=== PATIENT | female | born 1995 | race Caucasian/White ===

== ENCOUNTER 2019-10-25 18:25 | Emergency (ER) | payer OTHER, SELFPAY ==
[2019-10-25 18:30] VITALS: BP 145/100; PULSE 115; RESP 17; TEMP 36.7; O2SAT 98; BMI 40.3
--- NOTE | 2019-10-25 18:33 | XR_ITS ---
PROCEDURE: XR CHEST 2V CLINICAL HISTORY: chest pain Nonsmoker COMPARISON: No exams were available for comparison FINDINGS: The cardiomediastinal silhouette and pulmonary vascularity are within normal limits. The lungs are clear without infiltrates, suspicious nodules, or pleural effusions. No acute bony abnormalities. IMPRESSION: No acute findings. Dictated by: Dr. Blair Duran MD 10/25/2019 20:[address] Blair Duran MD in [place] 10/25/2019 20:44
--- NOTE | 2019-10-25 18:33 | ECG_ITS ---
APPROVED REPORT Exam: Resting ECG HR:111 bpm ECG Measurements Heart Rate 111 AXES [place] 168 P 39 QRSd 84 QRS 44 QT 342 T 31 QTc 465 <Conclusion> Sinus tachycardia Otherwise normal ECG Electronically signed by : Anderson Mojica, 10/26/2019 13:57:47
[2019-10-25 18:47] LABS: Microscopic, Urine URINE MICROSCOPIC (MICROSCOPIC)
[2019-10-25 18:49] LABS: Basophils % 0.4 % (0.1-2.0); Eosinophils # 0.2 K/mm3 (0.0-0.4); Eosinophils % 1.8 % (0.1-12.0); Hematocrit 42.5 % (37.0-47.0); Hemoglobin 13.8 g/dL (12.2-16.2); Lymphocytes # 3.3 K/mm3 (0.7-4.5); Lymphocytes % 36.5 % (10-50); Mean Corpuscular HGB Conc 32.6 g/dL (31.8-35.4); Mean Corpuscular Hemoglobin 30.3 pg (27.0-31.2); Mean Corpuscular Volume 92.8 fl (81-99); Mean Platelet Volume 7.8 fl (7.4-10.4); Monocytes # 0.4 K/mm3 (0.1-1.0); Monocytes % 3.9 % (1.7-9.3); Neutrophils # 5.2 K/mm3 (1.8-7.8); Neutrophils % 57.3 % (37.0-80.0); Platelet Count 332 K/mm3 (142-424); Red Blood Count 4.57 M/mm3 (4.20-5.40); Red Cell Distribution Width 13.3 % (11.5-17.5)
[2019-10-25 18:51] LABS: Appearance,Urine SL CLOUDY (Clear); Bilirubin,Urine Negative (Negative); Blood, Urine Negative (Negative); Color,Urine YELLOW (Yellow); Glucose,Urine (UA) Negative (Negative); Ketones,Urine Negative (Negative); Leukocyte Esterase,Urine 1+ (Negative); Nitrate,Urine Negative (Negative); PH,Urine 6.5 (5.0-8.5); Protein,Urine Negative (Negative); Specific Gravity, Urine 1.025 (1.005-1.030); Urobilinogen,Urine 0.2 EU/dl (0.2)
[2019-10-25 18:58] LABS: Amorphous Sediment,Urine 1+ /lpf; Bacteria,Urine 1+ /lpf; Squamous Epithelial Cell,Urine 20-50 #/hpf (0-5); Urine Pregnancy, HCG Qual. Negative (Negative)
[2019-10-25 18:59] LABS: Alanine Aminotransferase 16 U/L (12-78); Albumin Level 4.6 g/dl (3.5-5.0); Alkaline Phosphatase 85 U/L (38-126); Anion Gap 12.7 mEq/L (5-15); Aspartate Amino Transferase 23 U/L (14-36); Bilirubin,Unconjugated 0.2 mg/dL (0.0-1.1); Blood Urea Nitrogen 14 mg/dl (7-17); Calcium 9.9 mg/dl (8.4-10.2); Carbon Dioxide 25 mmol/L (22.0-30.0); Chloride 106 mmol/L (98-107); Creatinine Clearance Estimated 259 mL/min (50-200); Estimated Glomerular Filt Rate 123 ml/min (>60); GFR (African American) 149 ML/MIN (>60); Glucose 115 mg/dl (74-100); Potassium 3.7 mmoL/L (3.5-5.1); Sodium 140 mmol/L (136-145); Total Protein,Serum 8.3 g/dl (6.3-8.2)
[2019-10-25 19:02] LABS: Bilirubin,Indirect 0.1 mg/dL (0.0-0.9); Bilirubin,Total 0.1 mg/dl (0.2-1.3)
--- NOTE | 2019-10-25 19:12 | HMH.EDGENADL ---
ED Disposition Clinical Impression: Chest pain, atypical, Costochondral chest pain Disposition: Home, Self-Care Condition on Discharge: Good Instructions: DI for Atypical Chest Pain, DI for Costochondritis Additional Instructions: You have been evaluated for chest pain, atypical. It may be due to costochondritis or inflammation between the ribs. Please take ibuprofen or Aleve every 6 hours. Use heat or ice over the area. Try to avoid stress. Follow-up with your primary care doctor. Return to the emergency department if you have new or worsening symptoms, chest pain, shortness of breath, headache, syncope. Referrals: Bhavesh Patricia MD [Primary Care Provider] - Time of Disposition: 20:11 - Critical Care Critical Care Time: No Attestation: On 10/25/19, the high probability of a clinically significant, sudden or life threatening deterioration of the following system(s) required my full and direct attention, intervention and personal management. The time I documented below is in addition to time spent performing reported procedures but includes the following listed in this critical care notation. Medical Decision Making - Phu Inquiry Pt receiving controlled substance: No Vital Signs: 10/25/19 18:30 Temperature 98.1 F Temperature Source Oral Pulse Rate [Right Radial] 115 H Respiratory Rate 17 Blood Pressure [Right Arm] 145/100 H Blood Pressure Mean [Right Arm] 115 02 Sat by Pulse Oximetry 98 Oxygen Delivery Method Room Air - Lab Data Lab Results 10/25/19 18:35: WBC 9.0, RBC 4.57, Hgb 13.8, Hct 42.5, MCV 92.8, MCH 30.3, MCHC 32.6, RDW 13.3, Plt Count 332, MPV 7.8, Neut % (Auto) 57.3, Lymph % (Auto) 36.5, [place] % (Auto) 3.9, Eos % (Auto) 1.8, Baso % (Auto) 0.4, Neut # (Auto) 5.2, Lymph # (Auto) 3.3, Forest # (Auto) 0.4, Eos # (Auto) 0.2, Baso # (Auto) 0.0 10/25/19 18:35: Sodium 140, Potassium 3.7, Chloride 106, Carbon Dioxide 25, Anion Gap 12.7, BUN 14, Creatinine 0.60, Estimated Creat Clear 259, Estimated GFR 123, Est GFR ( Amer) 149, Glucose 115 H, Calcium 9.9, Total Bilirubin 0.1 L, Direct Bilirubin 0.0, Conjugated Bilirubin 0.0, Indirect Bilirubin 0.1, Unconjugated Bilirubin 0.2, AST 23, ALT 16, Alkaline Phosphatase 85, Troponin I < 0.01, Total Protein 8.3 H, Albumin 4.6 10/25/19 18:40: Urine Color Yellow, Urine Appearance Sl cloudy, Urine pH 6.5, Ur Specific [place] 1.025, Urine Protein Negative, Urine Glucose (UA) Negative, Urine Ketones Negative, Urine Blood Negative, Urine Nitrate Negative, Urine Bilirubin Negative, Urine Urobilinogen 0.2, Ur Leukocyte Esterase 1+ A, Urine WBC 3-5, Ur Squamous Epith Cells 20-50, Amorphous Sediment 1+, Urine Bacteria 1+ 10/25/19 18:40: Urine HCG, Qual Negative Result diagrams: 10/25/19 18:35 10/25/19 18:35 Orders (Tests/Meds): ED MEDICATIONS Discontinued Medications Generic Name Dose Route Start Last Admin Trade Name Freq PRN Reason Stop Dose Admin Al Hydrox/Mg Hydrox/Simethicone 30 ml 10/25/19 19:29 10/25/19 19:42 Maalox 30ml Udc PO 10/25/19 19:30 30 ml ONCE ONE Administration Aspirin 324 mg 10/25/19 18:33 10/25/19 18:40 Aspirin 81mg Chewable Tablet PO 10/25/19 18:34 324 mg ONCE ONE Administration ORDERS Category Date Time Status XR chest 2V Stat Exams 10/25/19 18:33 Taken Troponin I Q3H Lab 10/25/19 21:45 Ordered Troponin I Q3H Lab 10/26/19 00:45 Ordered Urine Culture Stat Micro 10/25/19 18:40 Received - ECG Data Tracing #1 Sinus rhythm with ventricular rate of 111 bpm. QRS 84, QTc 465. No ischemia or arrhythmia. ECG initial impression date: 10/25/19 - SCOT Score for Non-Stemi Age of Patient: <30 years old Heart Rate: 110-149 bpm Systolic Blood Pressure: 140-159 mmHg Serum Creatinine: 0.80-1.19 mg/dl CHF [place] Class: I-No CHF Other Risk Factors: None Non-Stemi Risk Score: 55 Medical Decision Narrative: In summary this is a 24-year-old female presenting to the emergency department with par
[2019-10-25 19:18] LABS: Troponin I < 0.01 ng/ml (0.00-0.034)
[2019-10-25 20:38] VITALS: BP 140/81; PULSE 92; RESP 16; TEMP 36.6; O2SAT 100
== END 2019-10-25 20:40 | disposition home or self-care (01) ==
PROVIDERS: Emergency Provider Emergency Medicine; PCP Family Medicine
DX: R07.2 Precordial pain (principal)
CPT/HCPCS: 71046; 80048; 80076; 81001; 81025; 84484; 85025; 87086; 93005; 99283

== ENCOUNTER 2020-07-27 09:01 | Emergency (ER) | payer BC, SELFPAY ==
[2020-07-27 09:01] VITALS: BP 145/88; PULSE 83; RESP 16; TEMP 36.6; O2SAT 98; BMI 41.9
--- NOTE | 2020-07-27 09:34 | HMH.EDUTC ---
[facility] [place] Dis[place] Clinical Impression: Encounter for laboratory testing for COVID-19 virus Disposition: Home, Self-Care Condition on Discharge: Good Instructions: DI for COVID-19 (Suspected or Confirmed ), Coronavirus Disease 2019, Preventing the Spread of Coronavirus Discharge Instructions Additional Instructions: *Monitor Temp, Over the counter Motrin or Tylenol as directed/as needed Tylenol every 4 hours and Motrin every 6 hours (as long as your family doctor has told you that you can take it) for fever or pain. and straight to ER if unable to lower temp less than 101.0 after medication given Follow up IMMEDIATELY for new or worsening symptoms or no Noticeable improvement over the next 48-72 hours. 911 for difficulty breathing or swallowing You were tested for today for COVID19 your test result should be back in the next 24-48 hours, you may call to the [facility] [place] to see if your test results are back in the next 48 hours [phone] [facility] [place] hours are 9am-9pm You was given a handout with instructions for Self Quarantine and Self isolation for while you wait on test results and what to do if they are positive If you are positive the Health Dept will be contacting you also Referrals: PCP,No [Primary Care Provider] - As needed Forms: Work/School Release Time of Disposition: 09:35 Medical Decision Making - Phu Inquiry Pt receiving controlled substance: No Phu was queried for this patient: No Vital Signs: 07/27/20 09:01 07/27/20 09:37 Temperature 97.8 F 97.8 F Temperature Source Oral Oral Pulse Rate 83 Pulse Rate [Right] 83 Respiratory Rate 16 16 Blood Pressure 145/88 H Blood Pressure [Right Arm] 145/88 H Blood Pressure Mean [Right Arm] 107 02 Sat by Pulse Oximetry 98 Orders (Tests/Meds): ORDERS Category Date Time Status Covid-19 Nasal PCR Sendout P&C Stat Lab 07/27/20 09:26 Received [facility] [place] HPI - General Stated complaint: covid test Time Seen by Provider: 07/27/20 09:34 Description of Symptoms (Recalled from Triage Doc. by RN): pt request covid test pt has no symptoms HEENT Symptoms (Recalled from RN notes): No Resp Symptoms (Recalled from RN notes): No Skin Symptoms (Recalled from RN notes): No MS Symptoms (Recalled from RN notes): No Functional Status (Recalled from RN notes): wnl - History of Present Illness Provider Complaint: Patient requesting to get tested for COVID due to recently exposure State that she is not having any symptoms but wanted to get tested - Related Data Home Medications Medication Instructions Recorded Confirmed No Known Home Medications 10/25/19 10/25/19 Allergies Allergy/AdvReac Type Severity Reaction Status Date / Time INGREDIENT: NO KNOWN - NO Allergy Unknown Uncoded 07/02/17 14:57 KNOWN DRUG ALLERGY - Worker's Comp Is this a Worker's Comp case?: No Is this an [employer] Worker's Comp?: No Is this a [place] Worker's Comp?: No [facility] History - Hepatitis A Screen Drug use history?: No High risk sexual behaviors?: No History of sexually transmitted infection?: No Currently employed?: No Childcare worker?: No Do you have indoor plumbing?: Yes Do you have electricity?: Yes Attestation statement:: This patient has been screened for Hepatitis A risk factors. I have reviewed the patient's past medical history: Yes Medical History: Denies:: Diabetes Mellitus Type 1, Diabetes Mellitus Type 2 - Social History Alcohol Intake: never Occupational Status: employed ROS Obtained: Yes All systems reviewed & no additional complaints - Constitutional Constitutional: Reports system reviewed and no additional complaints, except as docu, Denies body ache, Denies chills, Denies fever(s), Denies headache(s) - ENT Ears, Nose, Mouth, and Throat: Reports system reviewed and no additional complaints, except as docu - Cardiovascular Cardiovascular: Reports system reviewed and no additional complaints, except as docu - Respiratory Respiratory: Reports s
[2020-07-27 09:37] VITALS: BP 145/88; PULSE 83; RESP 16; TEMP 36.6; O2SAT 98
[2020-07-28 11:35] LABS: Covid-19 Nasal PCR Sendout P&C NEGATIVE
== END 2020-07-27 09:42 | disposition home or self-care (01) ==
PROVIDERS: Emergency Provider Nurse Practitioner
DX: Z20.822 Contact with and (suspected) exposure to COVID-19 (principal)
CPT/HCPCS: 99202; G0463; U0004

== ENCOUNTER 2020-08-07 09:03 | Emergency (ER) | payer BC, SELFPAY ==
[2020-08-07 09:05] VITALS: BP 131/84; PULSE 84; RESP 19; TEMP 36.9; O2SAT 98; BMI 41.9
--- NOTE | 2020-08-07 09:35 | HMH.EDUTC ---
[facility] [place] Disposition Clinical Impression: Cough, Encounter for laboratory testing for COVID-19 virus Disposition: Home, Self-Care Condition on Discharge: Good Instructions: Cough, DI for COVID-19 (Suspected or Confirmed ), Coronavirus Disease 2019, Preventing the Spread of Coronavirus Discharge Instructions Additional Instructions: *Monitor Temp, Over the counter Motrin or Tylenol as directed/as needed Tylenol every 4 hours and Motrin every 6 hours (as long as your family doctor has told you that you can take it) for fever or pain. and straight to ER if unable to lower temp less than 101.0 after medication given *Warm salt water gargles may help to soothe the throat *Throat Lozenges *Warm fluids like tea with honey may help to soothe the throat *Sleep elevated *Humidifier/Vaporizer Continue taking Mucinex for cough and chest congestion, make sure that you are drinking plenty of water Follow up IMMEDIATELY for new or worsening symptoms or no Noticeable improvement over the next 48-72 hours. 911 for difficulty breathing or swallowing You were tested for today for COVID19 your test result should be back in the next 24-48 hours, you may call to the [facility] to see if your test results are back in the next 48 hours [phone] [facility] hours are 9am-9pm You was given a handout with instructions for Self Quarantine and Self isolation for while you wait on test results and what to do if they are positive If you are positive the Health Dept will be contacting you also Referrals: Bhavesh Patricia MD [Primary Care Provider] - As needed Forms: Work/School Release Time of Disposition: 09:38 Medical Decision Making - Phu Inquiry Pt receiving controlled substance: No Phu was queried for this patient: No Vital Signs: 08/07/20 09:05 Temperature 98.4 F Temperature Source Oral Pulse Rate [Right Brachial] 84 Respiratory Rate 19 Blood Pressure [Right Arm] 131/84 Blood Pressure Mean [Right Arm] 99 Blood Pressure Source [Right Arm] Automatic Cuff Blood Pressure Position [Right Arm] Sitting 02 Sat by Pulse Oximetry 98 Oxygen Delivery Method Room Air Orders (Tests/Meds): ORDERS Category Date Time Status Covid-19 Nasal PCR ([facility]) Routine Lab 08/07/20 09:05 Ordered [facility] [place] HPI - General Stated complaint: covid test Time Seen by Provider: 08/07/20 09:35 Mode of Arrival: Ambulatory Source of Information: Patient Limitations: No Limitations Description of Symptoms (Recalled from Triage Doc. by RN): COVID TEST D/T EXPOSURE. C/O COUGH AND CHEST CONGESTION HEENT Symptoms (Recalled from RN notes): No Resp Symptoms (Recalled from RN notes): Yes Skin Symptoms (Recalled from RN notes): No MS Symptoms (Recalled from RN notes): No Functional Status (Recalled from RN notes): WNL - History of Present Illness Provider Complaint: Patient states that she was recently around someone that tested positive for COVID States that she is now having cough and feels like she may have some chest congestion States that she has been taking mucinex and it has helped States that she come in today to get tested for COVID - Related Data Home Medications Medication Instructions Recorded Confirmed No Known Home Medications 10/25/19 10/25/19 Allergies Allergy/AdvReac Type Severity Reaction Status Date / Time No Known Allergies Allergy Verified 08/07/20 09:35 - Worker's Comp Is this a Worker's Comp case?: No [facility] History - Hepatitis A Screen Drug use history?: No High risk sexual behaviors?: No History of sexually transmitted infection?: No Currently employed?: No Childcare worker?: No Do you have indoor plumbing?: Yes Do you have electricity?: Yes Attestation statement:: This patient has been screened for Hepatitis A risk factors. I have reviewed the patient's past medical history: Yes Medical History: Denies:: Diabetes Mellitus Type 1, Diabetes Mellitus Type 2 - Social History Alcohol Intake: never Occupational Statu
[2020-08-07 09:44] VITALS: BP 131/84; PULSE 84; RESP 19; TEMP 36.9; O2SAT 98
== END 2020-08-07 09:46 | disposition home or self-care (01) ==
PROVIDERS: Emergency Provider Nurse Practitioner; PCP Family Medicine
DX: Z20.822 Contact with and (suspected) exposure to COVID-19 (principal)
CPT/HCPCS: 99202; G0463; U0003

== ENCOUNTER 2021-06-07 22:42 | Emergency (ER) | payer OTHER, SELFPAY ==
[2021-06-07 22:44] VITALS: BP 165/102; PULSE 123; RESP 18; TEMP 36.9; O2SAT 99; BMI 41.9
--- NOTE | 2021-06-07 23:04 | HMH.EDGENADL ---
ED Disposition Clinical Impression: Pilonidal cyst Disposition: Home, Self-Care Condition on Discharge: Good Instructions: Pilonidal Cyst Additional Instructions: use meds and call pcp and surg for follow up Prescriptions: cephALEXin [cephALEXin 500mg capsule*] 500 mg PO TID #30 cap Prescription Printed clindamycin HCL [Cleocin HCl] 300 mg PO TID #30 cap Prescription Printed Referrals: Fidelia Lopez PA [Primary Care Provider] - Leon Almendarez MD [Staff Physician] - Mick Fisher MD [Staff Physician] - - Critical Care Critical Care Time: No Attestation: On 06/07/21, the high probability of a clinically significant, sudden or life threatening deterioration of the following system(s) required my full and direct attention, intervention and personal management. The time I documented below is in addition to time spent performing reported procedures but includes the following listed in this critical care notation. Medical Decision Making - Medical Records Medical records reviewed: Yes: I reviewed the patient's medical records. - Phu Inquiry Pt receiving controlled substance: No Vital Signs: 06/07/21 22:44 Temperature 98.5 F Temperature Source Oral Pulse Rate [Apical] 123 H Respiratory Rate 18 Blood Pressure [Right Arm] 165/102 H Blood Pressure Mean [Right Arm] 123 Blood Pressure Source [Right Arm] Automatic Cuff Blood Pressure Position [Right Arm] Sitting 02 Sat by Pulse Oximetry 99 Oxygen Delivery Method Room Air Medical Decision Narrative: has pilonidal cyst and will start abx and refer to pcp and surg General Adult HPI - General Chief complaint: PAIN Stated complaint: cyst on tailbone Time Seen by Provider: 06/07/21 23:05 Mode of Arrival: Ambulatory Source of Information: Patient, Medical Record Limitations: No Limitations Description of Symptoms (Recalled from ER Triage Doc. by RN): Patient states that she has a cyst on her tailbone. States that she has had them in the past and gets one every 4 years or so. States that this one started a few days ago and her pain has gotten more severe throughout the day. - History of Present Illness HPI narrative: pt with reddness and tender area on sacral area - pt has had before - no preg or diabetes Onset (ago): day(s) Location: buttocks Severity: moderate Associated symptoms: denies other symptoms Treatments prior to arrival: none - Related Data Previous Rx's Medication Instructions Recorded cephALEXin [cephALEXin 500mg 500 mg PO TID #30 cap 06/07/21 capsule*] clindamycin HCL [Cleocin HCl] 300 mg PO TID #30 cap 06/07/21 Allergies Allergy/AdvReac Type Severity Reaction Status Date / Time No Known Allergies Allergy Verified 08/07/20 09:35 [facility] History - Hepatitis A Screen Drug use history?: No High risk sexual behaviors?: No History of sexually transmitted infection?: No Currently employed?: No Childcare worker?: No Do you have indoor plumbing?: Yes Do you have electricity?: Yes Attestation statement:: This patient has been screened for Hepatitis A risk factors. I have reviewed the patient's past medical history: Yes Medical History: Denies:: Diabetes Mellitus Type 1, Diabetes Mellitus Type 2 - Social History Alcohol Intake: never Occupational Status: employed ROS Obtained: Yes All systems reviewed & no additional complaints - Constitutional Constitutional: Denies fever(s) - Eyes Eyes: Denies change in vision - ENT Ears, Nose, Mouth, and Throat: Denies sore throat - Cardiovascular Cardiovascular: Denies chest pain - Respiratory Respiratory: Denies shortness of breath - Gastrointestinal Gastrointestingal: Denies: abdominal pain - Genitourinary Female Genitourinary: Denies hematuria - Musculoskeletal Musculoskeletal: Denies joint pain - Integumentary/Breasts Skin/Breast: Reports as per HPI, Reports other (tender swelling anal cleft ) - Neurologic Neurologic: Denies seizur
[2021-06-07 23:32] VITALS: BP 139/96; PULSE 103; RESP 20; TEMP 36.9; O2SAT 99
== END 2021-06-07 23:35 | disposition home or self-care (01) ==
PROVIDERS: Emergency Provider Emergency Medicine; PCP Physician Assistant
DX: L05.91 Pilonidal cyst without abscess (principal)
CPT/HCPCS: 96372; 99281

== ENCOUNTER → 2021-07-27 11:51 | Outpatient (CLI) | payer OTHER, SELFPAY | PROVIDERS: PCP Family Medicine; Visit Provider Nurse Practitioner | DX: U07.1 COVID-19 (principal) | CPT/HCPCS: C9803; U0003; U0005 ==

== ENCOUNTER 2021-07-29 11:51 | Emergency (ER) | payer OTHER, SELFPAY ==
[2021-07-29 11:52] VITALS: BP 150/104; PULSE 119; RESP 18; TEMP 36.9; O2SAT 97; BMI 41.9
--- NOTE | 2021-07-29 12:21 | HMH.EDGENADL ---
ED Disposition Clinical Impression: COVID-19 Disposition: Home, Self-Care Condition on Discharge: Good Referrals: Fidelia Lopez PA [Primary Care Provider] - - Critical Care Critical Care Time: No Attestation: On , the high probability of a clinically significant, sudden or life threatening deterioration of the following system(s) required my full and direct attention, intervention and personal management. The time I documented below is in addition to time spent performing reported procedures but includes the following listed in this critical care notation. Medical Decision Making - Medical Records Medical records reviewed: Yes: I reviewed the patient's medical records. - Phu Inquiry Pt receiving controlled substance: No Vital Signs: 07/29/21 11:52 07/29/21 12:30 Temperature 98.4 F Temperature Source Oral Pulse Rate 102 H Pulse Rate [Right Radial] 119 H Respiratory Rate 18 15 Blood Pressure 135/90 Blood Pressure [Right Arm] 150/104 H Blood Pressure Mean 109 Blood Pressure Mean [Right Arm] 119 Blood Pressure Source [Right Arm] Automatic Cuff Blood Pressure Position [Right Arm] Sitting 02 Sat by Pulse Oximetry 97 98 Oxygen Delivery Method Room Air - Lab Data Lab Results 07/29/21 12:43: D-Dimer 0.69 H 07/29/21 12:43: Troponin I < 0.01 Orders (Tests/Meds): ED MEDICATIONS Discontinued Medications Generic Name Dose Route Start Last Admin Trade Name Freq PRN Reason Stop Dose Admin Ibuprofen 400 mg 07/29/21 12:10 07/29/21 12:44 Ibuprofen 400 Mg Tablet PO 07/29/21 12:11 400 mg ONCE ONE Administration ORDERS Category Date Time Status Troponin I Q3H Lab 07/29/21 15:15 Ordered Troponin I Q3H Lab 07/29/21 18:15 Ordered EKG Request [ECG Request by /Arin] Stat Y 07/29/21 12:09 Ordered Medical Decision Narrative: Patient is a healthy 26-year-old female, COVID-positive presenting for chief complaint of nasal congestion, chest discomfort and anxiety. Differential diagnosis includes, but is not limited to, COVID-19 syndrome, pericarditis, pulmonary embolus, superimposed bacterial infection, other. Initial exam, patient is normotensive but mildly tachycardic with heart rate of 120. Her lungs are clear, no murmur. No unilateral leg swelling or edema. Patient was evaluated with troponin, D-dimer and EKG. She was treated with ibuprofen for symptoms. On reassessment, patient is feeling improved. EKG shows no evidence of ST segment elevation, troponin is within normal limits. Patient has mildly elevated D-dimer but does not require further work-up per Year's criteria. It is likely elevated secondary to active COVID-19 infection. Patient was given strict return precautions, counseled to keep an eye out for hemoptysis, leg swelling or worsening of her condition and she was discharged in a stable condition. General Adult HPI - General Chief complaint: Upper Respiratory Infection Stated complaint: covid+, congestion, cough, soa Time Seen by Provider: 07/29/21 12:00 Mode of Arrival: Ambulatory Limitations: No Limitations Description of Symptoms (Recalled from ER Triage Doc. by RN): Positive COVID on 07/27. C/O cough, sore chest r/t coughing, dizziness, and congestion. - History of Present Illness HPI narrative: Patient is a healthy 26-year-old female presenting for chief complaint of congestion, dry cough and chest discomfort. She is COVID-19 positive and has been symptomatic since Saturday. She states her chest discomfort is worsened with laying down and improves with sitting up. It is not exertional and does not radiate. She rates it as 5 out of 10 in severity. Patient denies headache, vision changes, dyspnea, N/V/D, blood in stool, dysuria, hematuria. She states she is anxious. She is unvaccinated. - Related Data Previous Rx's Medication Instructions Recorded cephALEXin [cephALEXin 500mg 500 mg PO TID #30 cap 06/07/21 capsule*] clindamycin HCL [Cl
[2021-07-29 12:30] VITALS: BP 135/90; PULSE 102; RESP 15; O2SAT 98
--- NOTE | 2021-07-29 12:42 | ECG_ITS ---
APPROVED REPORT Exam: Resting ECG HR:101 bpm ECG Measurements Heart Rate 101 AXES IN 160 P 53 QRSd 82 QRS 57 QT 360 T 54 QTc 466 Conclusion Sinus tachycardia Otherwise normal ECG Electronically signed by : Robert Stiles MD 07/30/2021 08:31:20
[2021-07-29 13:07] LABS: D-Dimer 0.69 ug/mL (0.0-0.5)
[2021-07-29 13:16] LABS: Troponin I < 0.01 ng/ml (0.00-0.034)
[2021-07-29 14:01] VITALS: BP 138/89; PULSE 98; RESP 18; TEMP 36.9; O2SAT 97
== END 2021-07-29 14:02 | disposition home or self-care (01) ==
PROVIDERS: Emergency Provider Emergency Medicine; PCP Physician Assistant
DX: U07.1 COVID-19 (principal)
CPT/HCPCS: 84484; 85378; 93005; 99282

== ENCOUNTER 2021-07-30 16:09 | Emergency (ER) | payer OTHER, SELFPAY ==
--- NOTE | 2021-07-30 17:00 | XR_ITS ---
PROCEDURE INFORMATION: Exam: XR Chest Exam date and time: 07/30/2021 5:00 PM Age: 26 years old Clinical indication: Shortness of breath; Additional info: Covid positive, SOB TECHNIQUE: Imaging protocol: XR of the chest. Views: 2 views. COMPARISON: CR XR CHEST 2V 10/25/2019 7:05 PM FINDINGS: Lungs: Unremarkable. No consolidation. There is no focal mass. Pleural spaces: Unremarkable. No pleural effusion. No pneumothorax. Heart/Mediastinum: Unremarkable. No cardiomegaly. Bones/joints: Unremarkable. There is no acute fracture present. IMPRESSION: No evidence for acute cardiac or pulmonary process.
[2021-07-30 17:03] VITALS: BP 164/94; PULSE 109; RESP 20; TEMP 36.9; O2SAT 98; BMI 41.9
--- NOTE | 2021-07-30 17:08 | HMH.EDUTC ---
[facility] [place] Disposition Clinical Impression: COVID-19 Disposition: Home, Self-Care Condition on Discharge: Good Instructions: Preventing the Spread of Coronavirus Discharge Instructions, DI for COVID-19 (Suspected or Confirmed ) Additional Instructions: Drink plenty of fluids. Take tylenol or ibuprofen for pain or fever. Take the medications as directed. Follow up with your regular doctor. GO TO THE ER FOR ANY WORSENING SYMPTOMS The cough medication (promethazine dm) will make you drowsy, so don't drive or operate heavy machinery after taking it. Prescriptions: Albuterol Sulfate [Albuterol Sulfate Hfa] 2 puffs IH Q6HP PRN 30 Days #1 each PRN Reason: Shortness Of Breath Transmission Status: Pending to [id number] Promethazine/Dextromethorphan [Promethazine-Dm Syrup] 5 ml PO Q6HP PRN #240 ml PRN Reason: Cough Transmission Status: Pending to [id number] RX: dexAMETHasone [Decadron] 6 mg PO DAILY 6 Days #6 tab Transmission Status: Pending to [id number] Referrals: Fidelia Lopez PA [Primary Care Provider] - Time of Disposition: 18:11 Medical Decision Making - Medical Records Medical records reviewed: No: I reviewed the patient's medical records. - Phu Inquiry Pt receiving controlled substance: No Vital Signs: 07/30/21 17:03 Temperature 98.4 F Temperature Source Oral Pulse Rate [Left] 109 H Respiratory Rate 20 Blood Pressure [Right Arm] 164/94 H Blood Pressure Mean [Right Arm] 117 02 Sat by Pulse Oximetry 98 Orders (Tests/Meds): ORDERS Category Date Time Status Chest XR 2 view (NOT portable) [XR chest 2V] Stat Exams 07/30/21 17:00 Taken [facility] [place] HPI - General Stated complaint: covid+ congestion/chest congestion Time Seen by Provider: 07/30/21 17:08 Mode of Arrival: Ambulatory Source of Information: Patient Limitations: No Limitations Description of Symptoms (Recalled from Triage Doc. by RN): pt tested positive for covid on 07/27. pt c/o chest congestion and a cough HEENT Symptoms (Recalled from RN notes): No Resp Symptoms (Recalled from RN notes): Yes Skin Symptoms (Recalled from RN notes): No MS Symptoms (Recalled from RN notes): No Functional Status (Recalled from RN notes): wnl - History of Present Illness Provider Complaint: She states that she tested positive for covid-19 on 07/27. Since then she has got more short of breath and had a worsening cough. She currently complains of having severe body aches. She denies any history of asthma or lung issues. She has not been vaccinated against covid-19. - Related Data Previous Rx's Medication Instructions Recorded RX: clindamycin HCL [Cleocin HCl] 300 mg PO TID #30 cap 06/07/21 cephALEXin [cephALEXin 500mg 500 mg PO TID #30 cap 06/07/21 capsule*] Albuterol Sulfate [Albuterol 2 puffs IH Q6HP PRN 30 Days #1 each 07/30/21 Sulfate Hfa] Promethazine/Dextromethorphan 5 ml PO Q6HP PRN #240 ml 07/30/21 [Promethazine-Dm Syrup] RX: dexAMETHasone [Decadron] 6 mg PO DAILY 6 Days #6 tab 07/30/21 Allergies Allergy/AdvReac Type Severity Reaction Status Date / Time No Known Allergies Allergy Verified 08/07/20 09:35 - Worker's Comp Is this a Worker's Comp case?: No [facility] History - Hepatitis A Screen Drug use history?: No High risk sexual behaviors?: No History of sexually transmitted infection?: No Currently employed?: No Childcare worker?: No Do you have indoor plumbing?: Yes Do you have electricity?: Yes Attestation statement:: This patient has been screened for Hepatitis A risk factors. I have reviewed the patient's past medical history: Yes Medical History: Denies:: Diabetes Mellitus Type 1, Diabetes Mellitus Type 2 - Social History Alcohol Intake: never Occupational Status: employed ROS Obtained: Yes All systems reviewed & no additional complaints - Constitutional Constitutional: Reports as per HPI - Eyes Eyes: Denies eye discharge - ENT Ears, Nose, Mouth,
[2021-07-30 18:16] VITALS: BP 164/94; PULSE 109; RESP 20; TEMP 36.9
== END 2021-07-30 18:18 | disposition home or self-care (01) ==
PROVIDERS: Emergency Provider Nurse Practitioner Family; PCP Physician Assistant
DX: U07.1 COVID-19 (principal)
CPT/HCPCS: 71046; 99202; G0463

== ENCOUNTER 2021-08-04 09:25 | Emergency (ER) | payer OTHER, SELFPAY ==
[2021-08-04 10:10] VITALS: BP 124/86; PULSE 82; RESP 19; TEMP 37; O2SAT 97; BMI 40.6
--- NOTE | 2021-08-04 10:36 | XR_ITS ---
FINAL REPORT CLINICAL HISTORY: cough, Cov + 10 days ago FINDINGS: TWO VIEWS OF THE CHEST The heart is normal in size. The mediastinum is unremarkable. There are bibasilar opacities worrisome for pneumonia. There is no pneumothorax. IMPRESSION: Bibasilar opacities worrisome for pneumonia. Reviewed, Interpreted and Dictated by Mick Hitchcock III, MD Transcribed by Grace Javier Authenticated by Mick Hitchcock III, MD on 08/04/2021 11:48:[address] [facility]
--- NOTE | 2021-08-04 10:37 | HMH.EDUTC ---
[facility] [place] Clinical Impression: Bronchitis, Cough Disposition: Home, Self-Care Condition on Discharge: Good Instructions: Guaifenesin, DI for COVID-19 (Suspected or Confirmed ), Preventing the Spread of Coronavirus Discharge Instructions Additional Instructions: ? Start antibiotic today. Be sure to complete entire prescription even if feeling better ? Monitor temp. Tylenol every 4 hours as needed and / or ibuprofen every 6 hours as needed ( As long as your primary care physician has told you that it ok to take both. For fever/aches/pains ER if no less than 101 despite Tylenol or Motrin ? Humidifier/vaporizer or hot steamy shower ? Inhaler every 4-6 hours as needed like we discussed. If unsure how to use it, ask pharmacist to demonstrate how. Should help open airways and improve cough, wheezing, and shortness of breath ? Mucinex for your cough Be sure to drink lots of water. Follow up IMMEDIATELY for new or worsening of symptoms OR no noticeable improvement over the next 48-72 hours. 911 immediately for any life threatening symptoms such as chest pain or difficulty breathing Prescriptions: guaiFENesin [Mucinex 600mg tablet] 1 - 2 tab PO Q12HP PRN #20 tab PRN Reason: Congestion Transmission Status: [facility] Azithromycin [Z-Stanley 250mg Tab] 250 mg PO DIRECTED #6 tab Transmission Status: [facility] Referrals: Fidleia Lopez PA [Primary Care Provider] - As needed Time of Disposition: 11:08 Medical Decision Making - Phu Inquiry Pt receiving controlled substance: No Phu was queried for this patient: No Vital Signs: 08/04/21 10:10 08/04/21 11:14 Temperature 98.6 F 98.6 F Temperature Source Oral Pulse Rate 82 Pulse Rate [Right Brachial] 82 Respiratory Rate 19 19 Blood Pressure 124/86 Blood Pressure [Right Arm] 124/86 Blood Pressure Mean [Right Arm] 98 Blood Pressure Source [Right Arm] Automatic Cuff Blood Pressure Position [Right Arm] Sitting 02 Sat by Pulse Oximetry 97 Oxygen Delivery Method Room Air - Radiology Data #1 Image(s): Chest Image Reviewed: Yes I reviewed the patient's radiology image Preliminary Findings: Normal/NAD IMPRESSION: Bibasilar opacities worrisome for pneumonia. [facility] [place] - General Stated complaint: covid symptoms Time Seen by Provider: 08/04/21 10:37 Mode of Arrival: Ambulatory Source of Information: Patient Limitations: No Limitations Description of Symptoms (Recalled from Triage Doc. by RN): PATIENT C/O CONGESTION, CHEST PRESSURE, AND LOSS OF TASTE/SMELL. PT STATES SHE TESTED POSITIVE FOR COVID 10 DAYS AGO HEENT Symptoms (Recalled from RN notes): No Resp Symptoms (Recalled from RN notes): Yes Skin Symptoms (Recalled from RN notes): No MS Symptoms (Recalled from RN notes): No Functional Status (Recalled from RN notes): WNL - History of Present Illness Provider Complaint: Patient states that she tested positive for COVID about 10 days ago State that she has been having cough, chest congestion and at times feels like she cannot get a deep breath and wheezing State that today she was still having cough so she came in wanting to get a chest xray to see if she may have pneumonia - Related Data Previous Rx's Medication Instructions Recorded cephALEXin [cephALEXin 500mg 500 mg PO TID #30 cap 06/07/21 capsule*] clindamycin HCL [Cleocin HCl] 300 mg PO TID #30 cap 06/07/21 Albuterol Sulfate [Albuterol 2 puffs IH Q6HP PRN 30 Days #1 each 07/30/21 Sulfate Hfa] Promethazine/Dextromethorphan 5 ml PO Q6HP PRN #240 ml 07/30/21 [Promethazine-Dm Syrup] dexAMETHasone [Decadron] 6 mg PO DAILY 6 Days #6 tab 07/30/21 Azithromycin [Z-Stanley 250mg Tab] 250 mg PO DIRECTED #6 tab 08/04/21 guaiFENesin [Mucinex 600mg tablet] 1 - 2 tab PO Q12HP PRN #20 tab 08/04/21 Allergies Allergy/AdvReac Type Severity Reaction Status Date / Time No Known Allergies Allergy Verified 08/07/20 09:35 - Worker's Comp Is
[2021-08-04 11:14] VITALS: BP 124/86; PULSE 82; RESP 19; TEMP 37; O2SAT 97
[2021-08-04 20:04] LABS: UTC Pregnancy Test, Urine Negative (Negative)
== END 2021-08-04 11:19 | disposition home or self-care (01) ==
PROVIDERS: Emergency Provider Nurse Practitioner; PCP Physician Assistant
DX: J20.9 Acute bronchitis, unspecified (principal)
CPT/HCPCS: 71046; 81025; 99202; G0463

== ENCOUNTER 2021-08-11 18:59 | Emergency (ER) | payer OTHER, SELFPAY ==
--- NOTE | 2021-08-11 19:47 | XR_ITS ---
PROCEDURE INFORMATION: Exam: XR Chest Exam date and time: 08/11/2021 7:47 PM Age: 26 years old Clinical indication: Cough TECHNIQUE: Imaging protocol: XR of the chest. Views: 2 views. Total images: 2 COMPARISON: CR XR CHEST 2V 08/04/2021 10:35 AM FINDINGS: Lungs: Pulmonary vasculature grossly normal. The previous bilateral basilar alveolar opacities concerning for pulmonary infiltrates are improved. Residual linear stranding in the lung bases may represent subsegmental atelectasis or possibly postinflammatory fibrosis of recent prior pneumonia. Pleural spaces: Mild blunting of the costophrenic angles bilaterally, possibly minimal basilar effusions. No pneumothorax. Heart/Mediastinum: Heart size normal. No tracheal/mediastinal shift. Bones/joints: No acute osseous abnormalities are identified. IMPRESSION: 1. Previous bilateral basilar alveolar opacities are improved, suggesting resolving pneumonia or atelectasis. 2. Slightly blunted costophrenic angles bilaterally, possible trace basilar effusions.
[2021-08-11 19:52] VITALS: BP 155/97; PULSE 113; RESP 20; TEMP 36.8; O2SAT 98; BMI 41.9
[2021-08-11 20:15] VITALS: BP 155/97; PULSE 113; RESP 20; TEMP 36.8
--- NOTE | 2021-08-11 20:30 | HMH.EDUTC ---
[facility] [place] Disposition Clinical Impression: COVID-19, Pneumonia due to COVID-19 virus Disposition: Home, Self-Care Condition on Discharge: Good Instructions: Pneumonia-Adult Additional Instructions: Drink plenty of fluids. Take tylenol or ibuprofen for pain or fever. Take the medications as directed. Follow up with your regular doctor. GO TO THE ER FOR ANY WORSENING SYMPTOMS Finish the antibiotics that you are on. Prescriptions: methylPREDNISolone [Medrol] 4 mg PO DIRECTED 6 Days #21 packet Transmission Status: Received by [facility] Referrals: Fidelia Lopez PA [Primary Care Provider] - Time of Disposition: 20:54 Medical Decision Making - Medical Records Medical records reviewed: No: I reviewed the patient's medical records. - Phu Inquiry Pt receiving controlled substance: No Vital Signs: 08/11/21 19:52 08/11/21 20:15 Temperature 98.3 F 98.3 F Temperature Source Oral Pulse Rate 113 H Pulse Rate [Left] 113 H Respiratory Rate 20 20 Blood Pressure 155/97 H Blood Pressure [Right Arm] 155/97 H Blood Pressure Mean [Right Arm] 116 02 Sat by Pulse Oximetry 98 - Radiology Data #1 Image(s): Chest Image Reviewed: Yes I reviewed the patient's radiology image, Yes I have reviewed radiologist's interpretation Preliminary Findings: Abnormal PROCEDURE INFORMATION: Exam: XR Chest Exam date and time: 08/11/2021 7:47 PM Age: 26 years old Clinical indication: Cough TECHNIQUE: Imaging protocol: XR of the chest. Views: 2 views. Total images: 2 COMPARISON: CR XR CHEST 2V 08/04/2021 10:35 AM FINDINGS: Lungs: Pulmonary vasculature grossly normal. The previous bilateral basilar alveolar opacities concerning for pulmonary infiltrates are improved. Residual linear stranding in the lung bases may represent subsegmental atelectasis or possibly postinflammatory fibrosis of recent prior pneumonia. Pleural spaces: Mild blunting of the costophrenic angles bilaterally, possibly minimal basilar effusions. No pneumothorax. Heart/Mediastinum: Heart size normal. No tracheal/mediastinal shift. Bones/joints: No acute osseous abnormalities are identified. IMPRESSION: 1. Previous bilateral basilar alveolar opacities are improved, suggesting resolving pneumonia or atelectasis. 2. Slightly blunted costophrenic angles bilaterally, possible trace basilar effusions. [facility] [place] HPI - General Stated complaint: bronchitis Time Seen by Provider: 08/11/21 20:30 Mode of Arrival: Ambulatory Source of Information: Patient Limitations: No Limitations Description of Symptoms (Recalled from Triage Doc. by RN): pt c/o a cough, loss of taste/smell, and congestion. pt was covid positve two weeks ago. HEENT Symptoms (Recalled from RN notes): Yes Resp Symptoms (Recalled from RN notes): Yes Skin Symptoms (Recalled from RN notes): No MS Symptoms (Recalled from RN notes): No Functional Status (Recalled from RN notes): wnl - History of Present Illness Provider Complaint: She is back with continued complaints of coughing and fatigue. Over the past 2 weeks she has had covid-19. She developed pneumonia. She states that she is feeling some better and her cough is getting better, but she wanted to be rechecked just to make sure. She went back to work today. - Related Data Previous Rx's Medication Instructions Recorded cephALEXin [cephALEXin 500mg 500 mg PO TID #30 cap 06/07/21 capsule*] clindamycin HCL [Cleocin HCl] 300 mg PO TID #30 cap 06/07/21 Albuterol Sulfate [Albuterol 2 puffs IH Q6HP PRN 30 Days #1 each 07/30/21 Sulfate Hfa] Promethazine/Dextromethorphan 5 ml PO Q6HP PRN #240 ml 07/30/21 [Promethazine-Dm Syrup] dexAMETHasone [Decadron] 6 mg PO DAILY 6 Days #6 tab 07/30/21 Azithromycin [Z-Stanley 250mg Tab] 250 mg PO DIRECTED #6 tab 08/04/21 guaiFENesin [Mucinex 600mg tablet] 1 - 2 tab PO Q12HP PRN #20 t
== END 2021-08-11 21:00 | disposition home or self-care (01) ==
PROVIDERS: Emergency Provider Nurse Practitioner Family; PCP Physician Assistant
DX: U07.1 COVID-19 (principal); J12.82 Pneumonia due to coronavirus disease 2019
CPT/HCPCS: 71046; 99202; G0463

== ENCOUNTER 2024-08-26 13:00 | Emergency (ER) | payer SELFPAY ==
[2024-08-26 13:13] VITALS: BP 145/93; PULSE 114; RESP 18; TEMP 36.8; O2SAT 98; BMI 44.2
[2024-08-26 13:18] VITALS: RESP 16; O2SAT 100
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
[2024-08-26] MEDS: METHOCARBAMOL 500MG TABLET 500 MG PO (14:13)
[2024-08-26] MEDS: ACETAMINOPHEN 500MG TAB 1000 MG PO (14:13)
[2024-08-26] MEDS: LIDOCAINE 5% TRANSDERMAL PATCH 1 EACH TP (14:13)
[2024-08-26 14:29] VITALS: BP 125/86; PULSE 89; RESP 18; TEMP 36.8; O2SAT 98
== END 2024-08-26 14:30 | disposition home or self-care (01) ==
PROVIDERS: Emergency Provider Emergency Medicine; PCP Physician Assistant
DX: M54.2 Cervicalgia (principal); R42 Dizziness and giddiness; R11.2 Nausea with vomiting, unspecified; V89.0XXA Person injured in unspecified motor-vehicle accident, nontraffic, initial encounter
CPT/HCPCS: 99283